=== PATIENT | male | born 1970 ===

== ENCOUNTER 2020-01-25 22:05 | Emergency (ER) | payer SELFPAY ==
[2020-01-25] MEDS ORDERED: ONDANSETRON 4 MG/2 ML INJ IV ONE (22:14)
[2020-01-25 22:33] LABS: Basophils # (Auto) 0.2 K/mm3 (0.0-0.1); Basophils % (Auto) 2.1 % (0.0-1.8); Eosinophils # (Auto) 0.4 K/mm3 (0.0-0.4); Eosinophils % (Auto) 4.6 % (0.0-4.3); Hematocrit 44.4 % (35.5-45.6); Lymphocytes # (Auto) 3.9 K/mm3 (1.2-5.4); Lymphocytes % (Auto) 42.5 % (13.4-35.0); Mean Corpuscular HGB Conc 34 % (32-34); Mean Corpuscular Volume 85 fl (84-94); Monocytes # (Auto) 0.6 K/mm3 (0.0-0.8); Monocytes % (Auto) 6.9 % (0.0-7.3); Platelet Count 213 K/mm3 (140-440); Red Blood Count 5.21 M/mm3 (3.65-5.03); Red Cell Distribution Width 14.9 % (13.2-15.2)
[2020-01-25] MEDS ORDERED: DIPHtheria,PERTUSSIS(ACELL),TETANUS VACCINE/PF 0.5 ML VIAL IM ONE (22:40)
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
[2020-01-25 22:46] LABS: Albumin 4.7 g/dL (3.9-5); BUN/Creatinine Ratio 16; Blood Urea Nitrogen 16 mg/dL (9-20); Calcium 10.3 mg/dL (8.4-10.2); Hemolysis Index 136
[2020-01-25 22:53] LABS: Alanine Aminotransferase 15 units/L (7-56)
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
[2020-01-25] MEDS ORDERED: LIDOCAINE (1%) 10 MG/1 ML VIAL 20 ML MDV INFILTRATI ONE (23:40)
[2020-01-25] MEDS ORDERED: SODIUM CHLORIDE 0.9% IRR 500 ML BOTTLE IR ONE (23:43)
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
[2020-01-26 01:13] VITALS: BP 144/95
[2020-01-26] MEDS ORDERED: IBUPROFEN 800 MG TAB PO ONE (01:16)
[2020-01-26] MEDS ORDERED: oxyCODONE /ACETAMINOPHEN 5-325MG TAB PO ONE (01:16)
[2020-01-26] MEDS ORDERED: cephALEXin 500 MG CAP PO ONE (01:17)
== END 2020-01-26 02:14 | disposition home or self-care (01) ==
LOC: ED 22:05
DX: S01.81XA Laceration without foreign body of other part of head, initial encounter (principal); S09.8XXA Other specified injuries of head, initial encounter; S06.0X9A Concussion with loss of consciousness of unspecified duration, initial encounter; F12.10 Cannabis abuse, uncomplicated; Z79.1 Long term (current) use of non-steroidal anti-inflammatories (NSAID); Z79.899 Other long term (current) drug therapy; V27.4XXA Motorcycle driver injured in collision with fixed or stationary object in traffic accident, initial encounter; Y93.89 Activity, other specified; Y92.410 Unspecified street and highway as the place of occurrence of the external cause; Y99.8 Other external cause status
CPT/HCPCS: 12013; 36415; 70450; 70486; 71045; 72072; 72100; 72125; 80053; 83690; 85025; 86850; 86900; 86901; 90471; 90715; 96374; 99284; J2405; 80320; G0480

== ENCOUNTER 2020-03-01 16:40 | Emergency (ER) | payer SELFPAY ==
[2020-03-01 17:11] VITALS: BP 121/62
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
== END 2020-03-01 17:46 | disposition home or self-care (01) ==
LOC: ED 16:40
DX: T14.8XXD Other injury of unspecified body region, subsequent encounter (principal); X58.XXXD Exposure to other specified factors, subsequent encounter; Z48.02 Encounter for removal of sutures; Z53.21 Procedure and treatment not carried out due to patient leaving prior to being seen by health care provider